=== PATIENT | female | born 1995 | race Caucasian/White ===

== ENCOUNTER → 2018-03-23 | Outpatient (CLI) | payer OTHER ==
--- NOTE | 2018-03-23 16:07 | Diagnostic Imaging Report ---
PROCEDURE: US Thyroid. TECHNIQUE: Multiple real-time grayscale images were obtained of the thyroid in various projections. INDICATION: Thyroid enlargement. COMPARISON: No prior studies are available for comparison. FINDINGS: The right lobe of the thyroid measures 4.5 x 1.7 x 1.6 cm and the left lobe measures 4.9 x 1.5 x 1.7 cm. No discrete thyroid mass is detected. Both lobes show fairly homogeneous echotexture. IMPRESSION: No thyroid mass is identified. Dictated by: Dictated on workstation # [id number]
== END ==
LOC: RAD 15:18
PROVIDERS: ATTEND Nurse Practitioner
DX: E04.9 Nontoxic goiter, unspecified (principal)
CPT/HCPCS: 76536